=== PATIENT | female | born 1970 | race Caucasian/White ===

== ENCOUNTER 2016-09-13 12:25 | Emergency (ER) | payer OTHER ==
[~2016-09-13] VITALS: Ht 170.2 cm; Wt 130.0 kg
[2016-09-13 12:47] VITALS: BP 107/71
[2016-09-13] MEDS ORDERED: MOTRIN800 MG PO (13:17)
== END 2016-09-13 13:43 | disposition home or self-care (01) ==
LOC: EME 12:25
DX: S63.502A Unspecified sprain of left wrist, initial encounter (principal); X50.9XXA Other and unspecified overexertion or strenuous movements or postures, initial encounter; Y93.E6 Activity, residential relocation; Z88.0 Allergy status to penicillin; Z88.6 Allergy status to analgesic agent; Z91.040 Latex allergy status
CPT/HCPCS: 73110; 99281; 99283

== ENCOUNTER 2017-06-25 13:37 | Inpatient (IN) | payer OTHER ==
[~2017-06-25] VITALS: Ht 167.6 cm; Wt 127.4 kg
[~2017-06-25 13:37] MED LIST: MOTRIN800 MG PO
[2017-06-25 14:57] LABS: MCH 28.5 PG (29.0-34.0); MCHC 32.9 G/DL (30.0-36.0); MCV 86.7 FL (83-99); MEAN PLAT.VOLUME 9.8 uM^3 (9.5-12.4); PLATELET COUNT 251 K/uL (156-360); RBC DIS.WIDTH-CV 14.3 % (11.8-14.6); RBC DIS.WIDTH-SD 45.6 % (39-53); RED BLOOD COUNT 4.73 M/uL (3.80-5.20)
[2017-06-25 15:08] LABS: CHLORIDE 107 mEq/L (99-109); POTASSIUM 3.9 mEq/L (3.7-5.4); SODIUM 139 mEq/L (136-147)
[2017-06-25 15:10] LABS: GLUCOSE 140 mg/dL (70-99)
[2017-06-25 15:11] LABS: ANION GAP 9 MEQ/L (2-14)
[2017-06-25 15:12] LABS: TOTAL BILIRUBIN 0.2 mg/dL (0.0-1.0)
[2017-06-25 15:14] LABS: ALKALINE PHOSPHATASE 71 IU/L (3-129); GFR ESTIMATE (CALCULATED) > 59 mL/min/
[2017-06-25 15:15] LABS: UREA NITROGEN (BUN) 11 mg/dL (9-23)
[2017-06-25 15:22] LABS: TROP-I INTERPRETATION NEGATIVE; TROPONIN-I < 0.01 ng/mL (0.0-0.30)
[2017-06-25 15:32] LABS: SERUM ETHYL ALCOHOL < 10 mg/dL
[2017-06-25 16:55] LABS: ADD MIUA? YES; BILIRUBIN NEGATIVE; BLOOD MODERATE; COLOR YELLOW ((YELLOW)); GLUCOSE (STRIP) NEGATIVE; KETONES NEGATIVE; LEUKOCYTES NEGATIVE; NITRITE NEGATIVE; PROTEIN (STRIP) NEGATIVE; UROBILINOGEN 0.2 MG/DL (0.2-1.0)
[2017-06-25 16:58] LABS: BACTERIA RARE /HPF; EPITHELIAL CELLS RARE /HPF; MUCUS TRACE /LPF; RED BLOOD CELLS 0-5 /HPF (0-5); UCUL ADDED? NO; WHITE BLOOD CELLS 0-5 /HPF (0-5)
[2017-06-25 17:16] LABS: AMPHETAMINE NEGATIVE (500 ng/mL); BARBITURATES NEGATIVE (200 ng/mL); BENZODIAZEPINES NEGATIVE (150 ng/mL); COCAINE NEGATIVE (150 ng/mL); METHADONE NEGATIVE (200 ng/mL); METHAMPHETAMINE NEGATIVE (500 ng/mL); OPIATES (MORPHINE) NEGATIVE (100 ng/mL); OXYCODONE NEGATIVE (100 ng/mL); PHENCYCLIDINE NEGATIVE (25 ng/mL); PROPOXYPHENE NEGATIVE (300 ng/mL); THC CANNABINOIDS NEGATIVE (50 ng/mL)
[2017-06-25 17:17] LABS: INTERNAL CONTROLS VALID? YES; TRICYCLIC ANTIDEPRESSANTS PRESUMPTIVE POSITIVE (300 ng/mL)
[2017-06-26] VITALS (7 sets, daily range): BP systolic 98–134; BP diastolic 53–82
[2017-06-26 06:49] LABS: POINT-OF-CARE METER ID UU14149397
[2017-06-26 12:19] LABS: POINT-OF-CARE METER ID UU14208753
[2017-06-26] MEDS ORDERED: LISINOPRIL5 MG PO (13:56)
[2017-06-26] MEDS ORDERED: NORTRIPTYLINE H25 MG PO (13:56)
[2017-06-26] MEDS ORDERED: RIZATRIPTAN10 MG PO (13:56)
[2017-06-26] MEDS ORDERED: GLIPIZIDE10 MG PO (13:56)
[2017-06-26 20:06] LABS: POINT-OF-CARE METER ID UU13113675
[2017-06-27 05:11] VITALS: BP 109/70
[2017-06-27 06:21] LABS: POINT-OF-CARE METER ID UU14188577
[2017-06-27 06:27] LABS: HEMATOCRIT 38.7 % (36.0-46.0); MCH 28.4 PG (29.0-34.0); MCHC 32.6 G/DL (30.0-36.0); MCV 87.4 FL (83-99); MEAN PLAT.VOLUME 10.2 uM^3 (9.5-12.4); PLATELET COUNT 249 K/uL (156-360); RBC DIS.WIDTH-CV 14.3 % (11.8-14.6); RBC DIS.WIDTH-SD 45.5 % (39-53); RED BLOOD COUNT 4.43 M/uL (3.80-5.20)
[2017-06-27 07:14] LABS: ANION GAP 8 MEQ/L (2-14); CHLORIDE 104 MEQ/L (99-109); GFR ESTIMATE (CALCULATED) > 59 mL/min/; GLUCOSE 178 mg/dL (70-99); POTASSIUM 4.4 MEQ/L (3.7-5.4); SAMPLE HEMOLYSIS CHECK 0; SAMPLE ICTERIC CHECK 0; SAMPLE LIPEMIA CHECK 0; SODIUM 138 MEQ/L (136-147); UREA NITROGEN (BUN) 12 mg/dL (9-23)
[2017-06-27 07:58] VITALS: BP 110/67
[2017-06-27 11:33] LABS: POINT-OF-CARE METER ID UU14208753
[2017-06-27 11:38] VITALS: BP 97/54
[2017-06-27 16:00] VITALS: BP 132/56
[2017-06-27 17:02] LABS: POINT-OF-CARE METER ID UU14117124
[2017-06-27 22:33] LABS: POINT-OF-CARE METER ID UU14117124
[2017-06-27 23:48] VITALS: BP 107/53
[2017-06-28 06:55] LABS: POINT-OF-CARE METER ID UU14208753
[2017-06-28 07:17] VITALS: BP 101/50
[2017-06-28 11:33] LABS: POINT-OF-CARE METER ID UU14149397
[2017-06-28] MEDS ORDERED: ENDOCET 5-3251 EACH PO (12:03)
[2017-06-28] MEDS ORDERED: TIZANIDINE HCL4 MG PO (12:03)
[2017-06-28] MEDS ORDERED: TYLENOL REGULA325 MG PO (12:04)
[2017-06-28] MEDS ORDERED: SORE THROAT LO1 EAC3 MM (12:05)
[2017-06-28] MEDS ORDERED: Milk Of Magnesia,MOM PO (12:06)
[2017-06-28] MEDS ORDERED: SENNA PLUS TAB1 EACH PO (12:06)
[2017-06-28] MEDS ORDERED: BISACODYL5 MG PO (12:06)
[2017-06-28] MEDS ORDERED: FAMOTIDINE20 MG PO (12:07)
[2017-06-28] MEDS ORDERED: NOVOLOG PE100 UNITS/ SC (12:08)
[2017-06-28] MEDS ORDERED: TOPAMAX200 MG PO (13:50)
== END 2017-06-28 13:21 | DRG 472 ==
LOC: EME 13:37 → 3EAST 06-26 02:01 → EDOF 06-26 02:01 → ENRESERV 06-26 02:03 → 3EAST 06-26 03:39
PROVIDERS: Emergency Medicine; Hospitalist; Nurse Practitioner Family
DX: M48.02 Spinal stenosis, cervical region (principal); M50.021 Cervical disc disorder at C4-C5 level with myelopathy; Z68.42 Body mass index [BMI] 45.0-49.9, adult; M48.061 Spinal stenosis, lumbar region without neurogenic claudication; E66.9 Obesity, unspecified; I10 Essential (primary) hypertension; E53.8 Deficiency of other specified B group vitamins; E11.9 Type 2 diabetes mellitus without complications; G62.9 Polyneuropathy, unspecified; E78.5 Hyperlipidemia, unspecified; R29.810 Facial weakness; R32 Unspecified urinary incontinence; R29.6 Repeated falls; G40.909 Epilepsy, unspecified, not intractable, without status epilepticus
CPT/HCPCS: 70450; 72020; 72040; 72141; 72146; 72148; 76000; 80048; 80053; 81003; 82948; 84484; 85027; 93005; 95938; 99281; 99285; C1713; G0480; J0131; J0690; J1100; J1170; J1815; J1885; J2060; J2250; J2270; J2405; J2710; J2765; J3010; J7120

== ENCOUNTER 2017-06-28 12:16 | Inpatient (IN) | payer OTHER ==
[~2017-06-28] VITALS: Ht 167.6 cm; Wt 127.6 kg
[~2017-06-28 12:16] MED LIST changes: +BISACODYL5 MG PO; +ENDOCET 5-3251 EACH PO; +FAMOTIDINE20 MG PO; +GLIPIZIDE10 MG PO; +LISINOPRIL5 MG PO; +Milk Of Magnesia,MOM PO; +NORTRIPTYLINE H25 MG PO; +NOVOLOG PE100 UNITS/ SC; +RIZATRIPTAN10 MG PO; +SENNA PLUS TAB1 EACH PO; +SORE THROAT LO1 EAC3 MM; +TIZANIDINE HCL4 MG PO; +TYLENOL REGULA325 MG PO
[2017-06-28 13:20] VITALS: BP 117/76
[2017-06-28] MEDS ORDERED: TOPAMAX200 MG PO (13:50)
[2017-06-28 15:02] VITALS: BP 114/58
[2017-06-28 16:18] LABS: POINT-OF-CARE METER ID UU13113720
[2017-06-28 21:15] LABS: POINT-OF-CARE METER ID UU14174215
[2017-06-28 23:43] VITALS: BP 101/49
[2017-06-29 05:58] LABS: HEMATOCRIT 39.1 % (36.0-46.0); MCH 28.2 PG (29.0-34.0); MCHC 31.7 G/DL (30.0-36.0); MCV 88.9 FL (83-99); MEAN PLAT.VOLUME 10.1 uM^3 (9.5-12.4); PLATELET COUNT 190 K/uL (156-360); RBC DIS.WIDTH-CV 14.4 % (11.8-14.6); RBC DIS.WIDTH-SD 46.4 % (39-53); WHITE BLOOD COUNT 9.4 K/uL (4.1-10.2)
[2017-06-29 06:06] VITALS: BP 115/55
[2017-06-29 06:35] LABS: POINT-OF-CARE METER ID UU14174215; POINT-OF-CARE USER ID ENVGAF
[2017-06-29 06:36] LABS: ALKALINE PHOSPHATASE 58 IU/L (3-129); ANION GAP 7 MEQ/L (2-14); CHLORIDE 104 MEQ/L (99-109); GFR ESTIMATE (CALCULATED) > 59 mL/min/; GLUCOSE 150 mg/dL (70-99); POTASSIUM 4.2 MEQ/L (3.7-5.4); SAMPLE HEMOLYSIS CHECK 0; SAMPLE ICTERIC CHECK 0; SAMPLE LIPEMIA CHECK 0; SODIUM 140 MEQ/L (136-147); TOTAL BILIRUBIN 0.4 MG/DL (0.0-1.0); UREA NITROGEN (BUN) 12 mg/dL (9-23)
[2017-06-29 11:28] LABS: POINT-OF-CARE METER ID UU14174215
[2017-06-29 15:20] VITALS: BP 112/57
[2017-06-29 16:25] LABS: POINT-OF-CARE METER ID UU14174215
[2017-06-29 21:12] LABS: POINT-OF-CARE METER ID UU14174215
[2017-06-30 04:58] VITALS: BP 101/50
[2017-06-30 06:36] LABS: POINT-OF-CARE METER ID UU14174215; POINT-OF-CARE USER ID ENVGAF
[2017-06-30 12:17] LABS: POINT-OF-CARE METER ID UU14174215; POINT-OF-CARE USER ID AHSSSJB31
[2017-06-30 15:33] VITALS: BP 95/53
[2017-06-30 17:07] LABS: POINT-OF-CARE METER ID UU14174215
[2017-06-30 21:16] LABS: POINT-OF-CARE METER ID UU14174215
[2017-07-01 06:28] VITALS: BP 95/52
[2017-07-01 07:30] LABS: POINT-OF-CARE METER ID UU14174215; POINT-OF-CARE USER ID AHSSSJB31
[2017-07-01 11:42] LABS: POINT-OF-CARE METER ID UU14174215; POINT-OF-CARE USER ID AHSSSJB31
[2017-07-01 15:26] VITALS: BP 107/64
[2017-07-01 16:38] LABS: POINT-OF-CARE METER ID UU14174215; POINT-OF-CARE USER ID AHSSSJB31
[2017-07-01 21:14] LABS: POINT-OF-CARE METER ID UU13113720
[2017-07-02 04:38] VITALS: BP 101/58
[2017-07-02 07:42] LABS: POINT-OF-CARE METER ID UU14174215; POINT-OF-CARE USER ID AHSSSJB31
[2017-07-02 12:03] LABS: POINT-OF-CARE METER ID UU14174215; POINT-OF-CARE USER ID AHSSSJB31
[2017-07-02 15:32] VITALS: BP 105/55
[2017-07-02 16:31] LABS: POINT-OF-CARE METER ID UU13113720
[2017-07-02 21:34] LABS: POINT-OF-CARE METER ID UU13113720
[2017-07-03 05:16] VITALS: BP 96/58
[2017-07-03 08:04] LABS: POINT-OF-CARE METER ID UU14174215; POINT-OF-CARE USER ID AHSSSJB31
[2017-07-03 11:40] LABS: POINT-OF-CARE METER ID UU14174215; POINT-OF-CARE USER ID AHSSSJB31
[2017-07-03 16:03] LABS: POINT-OF-CARE METER ID UU14174215
[2017-07-03 16:07] VITALS: BP 111/58
[2017-07-03 20:40] LABS: POINT-OF-CARE METER ID UU14174215
[2017-07-04 05:14] VITALS: BP 117/86
[2017-07-04 07:34] LABS: POINT-OF-CARE METER ID UU13113720; POINT-OF-CARE USER ID ENVGAF
[2017-07-04 11:58] LABS: POINT-OF-CARE METER ID UU13113720; POINT-OF-CARE USER ID ENVGAF
[2017-07-04 15:04] VITALS: BP 115/64
[2017-07-04 16:42] LABS: POINT-OF-CARE METER ID UU14174215
[2017-07-04 21:12] LABS: POINT-OF-CARE METER ID UU14174215
[2017-07-05 04:43] VITALS: BP 106/79
[2017-07-05 08:10] LABS: POINT-OF-CARE METER ID UU13113720; POINT-OF-CARE USER ID AHSSSJB31
[2017-07-05 11:26] LABS: POINT-OF-CARE METER ID UU13113720; POINT-OF-CARE USER ID AHSSSJB31
[2017-07-05 16:11] VITALS: BP 101/56
[2017-07-05 16:42] LABS: POINT-OF-CARE METER ID UU13113720; POINT-OF-CARE USER ID AHSSSJB31
[2017-07-05 21:08] LABS: POINT-OF-CARE METER ID UU13113720
[2017-07-06 04:26] VITALS: BP 103/55
[2017-07-06 07:41] LABS: POINT-OF-CARE METER ID UU14174215; POINT-OF-CARE USER ID AHSSSJB31
[2017-07-06 12:04] LABS: POINT-OF-CARE METER ID UU14174215; POINT-OF-CARE USER ID AHSSSJB31
[2017-07-06 15:34] VITALS: BP 101/58
[2017-07-06] MEDS ORDERED: HEPARIN SO5000 UNIT4 SC (16:03)
[2017-07-06] MEDS ORDERED: SENNA PLUS TAB1 EACH PO (16:04)
[2017-07-06] MEDS ORDERED: THERAGRAN1 TABLET PO (16:05)
[2017-07-06] MEDS ORDERED: ASCORBIC ACID500 M3 PO (16:05)
[2017-07-06] MEDS ORDERED: FOLIC ACID1 MG PO (16:05)
[2017-07-06] MEDS ORDERED: ENDOCET 5-3251 EACH PO (16:06)
[2017-07-06 16:37] LABS: POINT-OF-CARE METER ID UU14174215
[2017-07-06 20:51] LABS: POINT-OF-CARE METER ID UU14174215
[2017-07-07 06:01] VITALS: BP 99/59
[2017-07-07 07:49] LABS: POINT-OF-CARE METER ID UU14174215; POINT-OF-CARE USER ID AHSSSJB31
[2017-07-07 11:34] LABS: POINT-OF-CARE METER ID UU14174215
[2017-07-07 15:23] VITALS: BP 104/59
[2017-07-07 16:20] LABS: POINT-OF-CARE METER ID UU14174215
== END 2017-07-07 17:28 | DRG 949 ==
LOC: 3WEST 12:16 → ENPENDDIS 07-12
PROVIDERS: Physical Medicine & Rehabilitation Pain Medicine
PROC: F07M0ZZ Range of Motion and Joint Mobility Treatment of Musculoskeletal System - Whole Body (ICD-10-PCS; principal; 2017-06-28)
DX: Z48.89 Encounter for other specified surgical aftercare (principal); M50.222 Other cervical disc displacement at C5-C6 level; Z68.42 Body mass index [BMI] 45.0-49.9, adult; E66.9 Obesity, unspecified; R53.1 Weakness; R41.83 Borderline intellectual functioning; Z98.1 Arthrodesis status; E11.9 Type 2 diabetes mellitus without complications; I10 Essential (primary) hypertension; Z87.891 Personal history of nicotine dependence; E53.8 Deficiency of other specified B group vitamins; M50.21 Other cervical disc displacement, high cervical region; Z91.81 History of falling; M47.814 Spondylosis without myelopathy or radiculopathy, thoracic region; M48.02 Spinal stenosis, cervical region; M50.021 Cervical disc disorder at C4-C5 level with myelopathy; G40.909 Epilepsy, unspecified, not intractable, without status epilepticus
CPT/HCPCS: 71010; 80053; 82948; 85027; 97110 GO; 97530 GP; J1644